=== PATIENT | male | born 1985 | race African-American/Black ===

== ENCOUNTER 2016-12-25 16:57 | Emergency (ER) | payer BC ==
[2016-12-25 17:02] VITALS: BMI 35.2
--- NOTE | 2016-12-25 17:20 | DR.GENAD ---
HPI - PCP Primary Care Physician: NFD - HPI Comment HPI Comment: PATIENTS PAIN IS SHARP AND INTERMITTENT. NO FEVER. NO VOMITING OR DIARRHEA. TODAY, PAIN WORSE. - Complaint/Symptoms Chief Complaint Doctors Comments: INCREASING ABDOMINAL PAIN, LUQ FOR MONTHS. NOW SEVERE AND FREQUENT. Chief Complaint:: STOMACH HURTS REALLY BAD BEEN HURTING FOR ABOUT MONTHS. - Nurses notes reviewed Nurses Notes Review: Yes - Source History Provided: Patient - Mode of Arrival Mode of Arrival: Ambulatory - Timing Onset of Chief Complaint: 12/24/16 Came on: Gradually - Duration Duration: Intermittent Duration: Weeks - Severity Severity: Moderate PMH - PMH Past Medical History: No Past Surgical History: Yes Surgical History: Ortho Surgery - Family History History of Family Medical Conditions: Yes Family Medical History: Diabetes Mellitus, [place], Sudden Cardiac - Social History Type of Tobacco Use: Cigarettes Does any household member use tobacco: No Alcohol Use: Occasionally Do you use any recreational Drugs:: No Lives With: Alone Lives Where: Home - infectious screening In the last 2 months have you had wt loss of >10#?: NO Have you had fever, night sweats or hemotysis?: No Have you traveled outside the country in the last 6 months?: No Isolation: Standard ROS - Review of Systems Constitutional: No Symptoms Reported Eyes: No Symptoms Reported ENTM: No Symptoms Reported Respiratoy: No Symptoms Reported Cardiovascular: No Symptoms Reported Gastrointestinal/Abdominal: Abdominal Pain, Nausea Genitourinary: No Symptoms Reported. negative: Dysuria, Frequency, Hematuria Neurological: No Symptoms Reported Musculoskeletal: Back Pain (LT FLANK PAIN) Integumentary: No Symptoms Reported Hematologic/Lymphatic: No Symptoms Reported Endocrine: No Symptoms Reported All Other Systems: Reviewed and Negative PE - Vital Signs Vitals: Temperature 98.5 F Pulse Rate [Left Brachial] 74 Pulse Rate 68 Respiratory Rate 20 Blood Pressure [Left Arm] 117/75 Blood Pressure 130/79 O2 Sat by Pulse Oximetry 100 - General Limitations: No Limitations General Appearance: Alert - Head Head Exam: Normal Inspection - Eyes Eye exam: Normal Appearance - ENT ENT Exam: Normal External Ear Exam External Ear Exam: Normal External Inspection TM/Canal Exam: Bilateral Normal Nose Exam: Normal Nose Exam Mouth Exam: Normal Inspection Throat Exam: Normal Inspection - Neck Neck Exam: Trachea Midline - Chest Chest Inspection: Symmetric Chest Wall Rise - Respiratory Respiratory Exam: Normal Lung Sounds Bilat Respiratory Exam: Bilateral Clear to Auscultation - Cardiovascular Cardiovascular Exam: Regular Rate, Normal Rhythm, Normal Heart Sounds - Abdominal Exam Abdominal Exam: Normal Bowel Sounds, Soft, Tenderness Abdominal Tenderness: LUQ, Moderate - Extremities Extremities Exam: Normal Inspection - Back Back Exam: (L) CVA Tenderness - Neurologic Neurological Exam: Alert, Oriented X3 - Psychiatric Psychiatric Exam: Normal Affect, Normal Mood - Skin Skin Exam: Normal Color MDM - Differential Diagnosis Differential Diagnosis: ABDOMINAL PAIN, BOWEL OBSTRUCTION, PUD, PANCREATITIS. Course - Treatment Treatment: SEE ORDERS. MED FOR PAIN GIVEN IN ED. - Reevaluation 1st: Improved (PAIN DECREASING.) - Education/Counseling Education/Counseling: Patient, Education Educated On: Diagnosis, Needs for Follow Up ROR - Labs Reviewed Laboratory Results Reviewed?: Yes Result Diagrams: 12/25/16 18:14 12/25/16 18:14 Laboratory: WBC 7.9 X10^3/uL (3.6-10.0) 12/25/16 18:14 RBC 6.86 X10^6/uL (4.7-6.0) H 12/25/16 18:14 Hgb 15.6 g/dL (13.5-18.0) 12/25/16 18:14 Hct 48.0 % (42.0-54.0) 12/25/16 18:14 MCV 70.0 fL (80.0-100.0) L 12/25/16 18:14 MCH 22.7 pg (27.0-34.0) L 12/25/16 18:14 MCHC 32.5 g/dL (33.0-35.0) L 12/25/16 18:14 RDW 15.2 % (11.6-16.5) 12/25/16 18:14 Plt Count 155 X10^3/uL (150.0-450.0) 12/25/16 18:14 Plt Count Comment Adequate (ADEQUATE) 12/25/16 18:14 MPV 8.1 fL (7.4-11.0) 12/25/16 18:14 Neut % 58.4 % (42.0-75.0) 12/25/16 18:14 Lymph % 33.1 % (21.0-51.0) 12/25/16 18:14 [place] % 7.0 % (0.0-13.0) 12/25/16 18:14 Eos % 0.7 % (0.9-2.9) L 12/25/16 18:14 Baso % 0.8 % (0.2-1.0) 12/25/16 18:14 Neut # 4.6 x10^3/uL (2.2-4.8) 12/25/16 18:14 Lymph # 2.6 X10^3/uL (1.3-2.9) 12/25/16 18:14 [place]ell # 0.6 x10^3/uL (0.3-0.8) 12/25/16 18:14 Eos # 0.1 x10^3/uL (0.0-0.2) 12/25/16 18:14 Baso # 0.1 X10^3/uL (0.0-0.1) 12/25/16 18:14 Absolute Nucleated RBC 0.0 /100WBC 12/25/16 18:14 Plt Morphology Comment Normal (NORMAL) 12/25/16 18:14 RBC Morphology Abnormal (NORMAL) 12/25/16 18:14 Hypochromasia 1+ A 12/25/16 18:14 Microcytosis Slight A 12/25/16 18:14 Sodium 140 mmol/L (136-145) 12/25/16 18:14 Corrected Sodium TNP 12/25/16 18:14 Potassium 3.4 mmol/L (3.5-5.1) L 12/25/16 18:14 Chloride 105 mmol/L (98-107) 12/25/16 18:14 Carbon Dioxide 30.3 mmol/L (21-32) 12/25/16 18:14 BUN 9 mg/dL (7-18) 12/25/16 18:14 Creatinine 1.01 mg/dL (0.70-1.30) 12/25/16 18:14 Est GFR (MDRD) Af Amer > 60 (>60) 12/25/16 18:14 Est GFR (MDRD) Non-Af > 60 (>60) 12/25/16 18:14 Glucose 96 mg/dL (65-99) 12/25/16 18:14 Calcium 9.4 mg/dL (8.5-10.1) 12/25/16 18:14 Corrected Calcium TNP 12/25/16 18:14 Total Bilirubin 0.40 mg/dL (0.2-1.0) 12/25/16 18:14 AST 32 Units/L (15-37) 12/25/16 18:14 ALT 36 Units/L (12-78) 12/25/16 18:14 Alkaline Phosphatase 99 Units/L (46-116) 12/25/16 18:14 Total Protein 7.6 g/dL (6.4-8.2) 12/25/16 18:14 Albumin 3.6 g/dL (3.4-5.0) 12/25/16 18:14 Globulin 4.0 g/dL (2.5-4.5) 12/25/16 18:14 Albumin/Globulin Ratio 0.9 Ratio (1.1-2.1) L 12/25/16 18:14 Amylase 90 Units/L (25-115) 12/25/16 18:14 Lipase 442 Units/L (73-393) H 12/25/16 18:14 H. pylori IgG Antibody Positive (NEGATIVE) A 12/25/16 18:14 - XRAY XRAY Interpreted by: Radiologist XRAY Findings: REPORT DISCUSS WITH PATIENT. - Diagnosis Discharge Problem: Helicobacter positive gastritis Acute pancreatitis Qualifiers: Pancreatitis type: unspecified pancreatitis type Acute pancreatitis complication: unspecified Qualified Code(s): K85.90 - Acute pancreatitis without necrosis or infection, unspecified Abdominal pain Qualifiers: Abdominal location: left upper quadrant Qualified Code(s): R10.12 - Left upper quadrant pain - Discharge Plan Disposition: 01 HOME, SELF-CARE Condition: Stable Prescriptions: Acetaminophen with Codeine [Tylenol/Codeine #3 300-30 mg] 1 tab PO Q4-6H PRN # 20 tab PRN Reason: Pain Lansoprazole/Amoxiciln/Clarith [PrevPac 14-day pack] 1 dose PO BID #1 pkg Ranitidine HCl [ZANTAC TAB 150 MG *] 150 mg PO BID #60 tab - Follow ups/Referrals Follow ups/Referrals: NFD,None [Primary Care Provider] - 3 days - Instructions Instructions: Helicobacter Pylori Antibodies Test, Acute Pancreatitis Additional Instructions: RETURN TO ED IF WORSE.
[2016-12-25 18:21] LABS: BASOPHILS # (AUTO) 0.1 X10^3/uL (0.0-0.1); BASOPHILS % (AUTO) 0.8 % (0.2-1.0); EOSINOPHILS # (AUTO) 0.1 x10^3/uL (0.0-0.2); EOSINOPHILS % (AUTO) 0.7 % (0.9-2.9); HEMOGLOBIN 15.6 g/dL (13.5-18.0); LYMPHOCYTES # (AUTO) 2.6 X10^3/uL (1.3-2.9); LYMPHOCYTES % (AUTO) 33.1 % (21.0-51.0); MEAN CORPUSCULAR HEMOGLOBIN 22.7 pg (27.0-34.0); MEAN CORPUSCULAR HGB CONC 32.5 g/dL (33.0-35.0); MEAN PLATELET VOLUME 8.1 fL (7.4-11.0); MONOCYTES # (AUTO) 0.6 x10^3/uL (0.3-0.8); NEUTROPHILS # (AUTO) 4.6 x10^3/uL (2.2-4.8); NEUTROPHILS % (AUTO) 58.4 % (42.0-75.0); PLATELET COUNT 155 X10^3/uL (150.0-450.0); RED BLOOD COUNT 6.86 X10^6/uL (4.7-6.0); RED CELL DISTRIBUTION WIDTH 15.2 % (11.6-16.5); WHITE BLOOD COUNT 7.9 X10^3/uL (3.6-10.0)
[2016-12-25 18:41] LABS: ALANINE AMINOTRANSFERASE 36 Units/L (12-78); ALBUMIN 3.6 g/dL (3.4-5.0); ALKALINE PHOSPHATASE 99 Units/L (46-116); AMYLASE 90 Units/L (25-115); ASPARTATE AMINO TRANSFERASE 32 Units/L (15-37); BLOOD UREA NITROGEN 9 mg/dL (7-18); CALCIUM 9.4 mg/dL (8.5-10.1); CARBON DIOXIDE 30.3 mmol/L (21-32); CHLORIDE 105 mmol/L (98-107); CREATININE 1.01 mg/dL (0.70-1.30); LIPASE 442 Units/L (73-393); SODIUM 140 mmol/L (136-145); TOTAL PROTEIN 7.6 g/dL (6.4-8.2); eGFR BLACK RACES > 60 (>60); eGFR NON BLACK RACES > 60 (>60)
[2016-12-25 18:47] LABS: HYPOCHROMASIA 1+; MICROCYTOSIS SLIGHT; PLATELET MORPHOLOGY COMMENT NORMAL (NORMAL)
--- NOTE | 2016-12-25 18:51 | CT ---
CT abdomen and pelvis without contrast Indication: Left-sided abdominal pain Technique: Helical images through the abdomen and pelvis without contrast. Coronal sagittal reformats provided. Findings: Limited images through lower chest shows no acute abnormality. Review of bone windows shows no osseous lesion. Abdomen: The liver, gallbladder, spleen, pancreas, adrenal glands, stomach and small bowel are normal . No acute colonic abnormality seen. Appendix is normal. Small fact containing umbilical hernia noted . The kidneys are normal without hydroureteronephrosis. Vasculature is free of plaque. Pelvis: Urinary bladder, rectum and prostate gland are normal. Impression: No acute abnormality. Reported By:
[2016-12-25] MEDS ORDERED: PEPCID TAB 20 MG PO ONE (19:14)
[2016-12-25] MEDS ORDERED: PEPCID TAB 20 MG ONE ×2 (19:18→19:19)
[2016-12-25] MEDS ORDERED: NORCO 7.5/325 MG TAB PO ONE (19:22)
[2016-12-25] MEDS ORDERED: NORCO 7.5/325 MG TAB ONE (19:43)
[2016-12-25 19:56] VITALS: BP 117/75
== END 2016-12-25 19:48 | disposition home or self-care (01) ==
LOC: ER 17:12
DX: R10.12 Left upper quadrant pain (principal); K85.90 Acute pancreatitis without necrosis or infection, unspecified; B96.81 Helicobacter pylori [H. pylori] as the cause of diseases classified elsewhere
CPT/HCPCS: 36415; 74176; 80053; 82150; 83690; 85025; 86677; 99283

== ENCOUNTER → 2017-07-01 | Outpatient (CLI) | payer BC ==
[2017-07-01 16:10] LABS: BASOPHILS # (AUTO) 0.1 X10^3/uL (0.0-0.1); BASOPHILS % (AUTO) 0.8 % (0.2-1.0); EOSINOPHILS # (AUTO) 0.1 x10^3/uL (0.0-0.2); EOSINOPHILS % (AUTO) 1.2 % (0.9-2.9); HEMATOCRIT 48.6 % (42.0-54.0); HEMOGLOBIN 16.1 g/dL (13.5-18.0); LYMPHOCYTES # (AUTO) 2.6 X10^3/uL (1.3-2.9); LYMPHOCYTES % (AUTO) 37.4 % (21.0-51.0); MEAN CORPUSCULAR HEMOGLOBIN 23.2 pg (27.0-34.0); MEAN CORPUSCULAR HGB CONC 33.1 g/dL (33.0-35.0); MEAN CORPUSCULAR VOLUME 70.3 fL (80.0-100.0); MEAN PLATELET VOLUME 7.8 fL (7.4-11.0); MONOCYTES # (AUTO) 0.9 x10^3/uL (0.3-0.8); MONOCYTES % (AUTO) 12.9 % (0.0-13.0); NEUTROPHILS # (AUTO) 3.3 x10^3/uL (2.2-4.8); NEUTROPHILS % (AUTO) 47.7 % (42.0-75.0); PLATELET COUNT 158 X10^3/uL (150.0-450.0); RED BLOOD COUNT 6.92 X10^6/uL (4.7-6.0); RED CELL DISTRIBUTION WIDTH 15.5 % (11.6-16.5)
[2017-07-01 16:16] LABS: ALANINE AMINOTRANSFERASE 41 Units/L (12-78); ALBUMIN 3.7 g/dL (3.4-5.0); ALKALINE PHOSPHATASE 108 Units/L (46-116); AMYLASE 56 Units/L (25-115); ASPARTATE AMINO TRANSFERASE 27 Units/L (15-37); BLOOD UREA NITROGEN 11 mg/dL (7-18); CALCIUM 8.6 mg/dL (8.5-10.1); CARBON DIOXIDE 31.8 mmol/L (21-32); CHLORIDE 104 mmol/L (98-107); CREATININE 1.16 mg/dL (0.70-1.30); LIPASE 157 Units/L (73-393); SODIUM 140 mmol/L (136-145); TOTAL PROTEIN 8.2 g/dL (6.4-8.2); eGFR BLACK RACES > 60 (>60); eGFR NON BLACK RACES > 60 (>60)
[2017-07-01 16:31] LABS: HYPOCHROMASIA SLIGHT; MICROCYTOSIS SLIGHT; PLATELET MORPHOLOGY COMMENT NORMAL (NORMAL)
== END ==
LOC: LAB 15:50
PROVIDERS: ATTEND Nurse Practitioner Family
DX: R10.11 Right upper quadrant pain (principal); R50.9 Fever, unspecified; R79.82 Elevated C-reactive protein (CRP)
CPT/HCPCS: 36415; 80053; 82150; 83690; 85025; 86140